=== PATIENT | male | born 1970 | race American Indian/Alaskan Native ===

== ENCOUNTER 2017-12-03 10:53 | Emergency (ER) | payer OTHER ==
[2017-12-03 11:19] VITALS: BP 119/81
== END 2017-12-03 14:29 | disposition left against medical advice (07) ==
LOC: ED 10:53
DX: Z53.21 Procedure and treatment not carried out due to patient leaving prior to being seen by health care provider (principal)

== ENCOUNTER 2019-09-21 06:04 | Day surgery (SDC) | payer OTHER ==
[2019-09-21] MEDS ORDERED: LIDOCAINE MPF (2%) 20 MG/1 ML VIAL 5 ML ONE (07:07)
[2019-09-21] MEDS ORDERED: PROPOFOL 200 MG/20 ML VIAL IV ONE ×2 (07:07→09:06)
[2019-09-21] MEDS ORDERED: fentaNYL 100 MCG/2 ML INJ ONE (07:07)
[2019-09-21] MEDS ORDERED: ceFAZolin/STERILE WATER 2 GM/20 ML SYRINGE IV NR (07:16)
--- NOTE | 2019-09-21 07:26 | Anesthesia Consultation ---
Anesthesia Consult and Med Hx Date of service: 09/21/19 - Airway Anesthetic Teeth Evaluation: Poor ROM Head & Neck: Adequate Mental/Hyoid Distance: Adequate Mallampati Class: Class II Intubation Access Assessment: Probably Good - Pulmonary Exam CTA: Yes - Cardiac Exam Cardiac Exam: RRR - Pre-Operative Health Status ASA Pre-Surgery Classification: ASA2 Proposed Anesthetic Plan: General - Pulmonary Hx Smoking: No Hx Asthma: No Hx Respiratory Symptoms: No SOB: No COPD: No Home Oxygen Therapy: No Hx Pneumonia: No Hx Sleep Apnea: No - Cardiovascular System Hx Hypertension: No Hx Coronary Artery Disease: No Hx Heart Attack/AMI: No Hx Angina: No Hx Percutaneous Transluminal Coronary Angioplasty (PTCA): No Hx Cardia Arrhythmia: No Hx Pacemaker: No Hx Internal Defibrillator: No Hx Valvular Heart Disease: No Hx Heart Murmur: No Hx Peripheral Vascular Disease: No - Central Nervous System Hx Neuromuscular Disorder: No Hx Seizures: No CVA: No Hx Back Pain: Yes (UPPER) Hx Psychiatric Problems: No - Gastrointestinal Hx Ulcer: No Hx Gastroesophageal Reflux Disease: No - Endocrine Hx Renal Disease: No Hx End Stage Renal Disease: No Hx Cirrhosis: No Hx Liver Disease: No Hx Insulin Dependent Diabetes: No Hx Non-Insulin Dependent Diabetes: No Hx Thyroid Disease: No Hx Hypothyroidism: No Hx Hyperthyroidism: No - Hematic Hx Anemia: No Hx Sickle Cell Disease: No - Other Systems Hx Alcohol Use: Yes (4 BEERS/WEEK) Hx Substance Use: No Hx Cancer: No Hx Obesity: No
--- NOTE | 2019-09-21 07:27 | Anesthesia Day of Surgery ---
Anesthesia Day of Surgery - Day of Surgery Patient Examined: Yes Patient H&P Reviewed: Yes Patient is NPO: Yes Beta Blockers: No Cardiac Clearance: No Pulmonary Clearance: No Bryant's Test: N/A
[2019-09-21] MEDS ORDERED: BUPIVACAINE-EPINEPHRINE/PF 0.5%-1:200,000 (30 ML) VIAL INFILTRATI ONE ×2 (07:31→08:33)
[2019-09-21] MEDS ORDERED: MIDAZOLAM 2 MG/2 ML INJ IV NR (08:00)
[2019-09-21] MEDS ORDERED: LACTATED RINGERS 1,000 ML IV SCH (08:00)
[2019-09-21] MEDS ORDERED: SUCCINYLCHOLINE CHLORIDE 200 MG/10 ML INJ MDV ONE (08:03)
[2019-09-21] MEDS ORDERED: ROCURONIUM 50 MG/5 ML INJ IV ONE (08:10)
[2019-09-21] MEDS ORDERED: ONDANSETRON 4 MG/2 ML INJ ONE (08:12)
[2019-09-21] MEDS ORDERED: dexAMETHasone 20 MG/5 ML VIAL ONE (08:13)
[2019-09-21] MEDS ORDERED: KETOROLAC 30 MG/1 ML INJ ONE (08:16)
[2019-09-21] MEDS ORDERED: HYDROmorphone 1 MG/1 ML INJ ONE (08:21)
[2019-09-21] MEDS ORDERED: SODIUM CHLORIDE 0.9% IRR 1,500 ML BOTTLE IR ONE (08:59)
--- NOTE | 2019-09-21 09:07 | Discharge Summary ---
Short Stay Discharge Plan Activity: other (observe x 4 hrs then march d/c if stable and able to void. ice pack L groin x 6 hrs. scrotal support x 3 days. no lifting over 5 lbs x 3 wks. keep incision dry x 5 days) Diet: clear liquids (advance to solid diet as luis) Wound: keep clean and dry Additional Instructions: surfak I po q am x 3. aleve I po q 6-8 hrs prn for breakthrough pain Follow up with: WILLIAM CANALES MD [Staff Physician] - 7 Days
--- NOTE | 2019-09-21 11:19 | Operative Report ---
PREOPERATIVE DIAGNOSIS: Left inguinal hernia. POSTOPERATIVE DIAGNOSES: Lipoma of cord and large direct inguinal hernia. PROCEDURE: Open left inguinal hernia repair with mesh. SURGEON: Angel Chavira MD ANESTHESIA: General. ESTIMATED BLOOD LOSS: Minimal. DRAINS: None. COMPLICATIONS: None. PROCEDURE IN DETAIL: The patient was taken to the operating room, prepped and draped in usual sterile fashion. Incision was made using his landmarks anterior superior iliac spine and the pubic tubercle. Incision was carried down to the external oblique fascia. External oblique fascia was transected down to the external inguinal ring. The cord was then isolated with a Barb drain at the level of the pubic tubercle. Inspection of the cord revealed a lot of fatty tissue as well as a lipoma, but no indirect sac. The palpation of the floor did reveal a complete weakness of the inguinal canal floor consistent with large direct hernia. The lipoma was inverted and returned to the peritoneal cavity. A preshaped keyhole Marlex mesh was used to reconstruct the inguinal canal floor. The mesh was tacked in his lower most portion to the area of the pubic tubercle and inferior iliopubic tract with tacker. Medially, the mesh was secured to the transversalis fascia with Surgilon suture. Laterally, it was secured to the iliopubic tract. The cord was then on laid over the mesh. All cord structures were inspected including the ilioinguinal nerve and noted to be intact. Area was irrigated copiously and dried. Checked for hemostasis and noted to be dry. External oblique fascia was then closed over the cord with running 4-0 Vicryl suture. Subcutaneous tissues irrigated and skin closed with igor. A 0.5% Marcaine was infiltrated over the fascia, subcutaneous and skin for postoperative pain relief. Ilioinguinal nerve block was also performed. The patient tolerated the procedure well and left the OR in stable condition. JOB# [id number] STEPHANIE/NTS
[2019-09-21] MEDS ORDERED: HYDROcodone/ACETAMINOPHEN 5-325 MG TAB PO PRN (12:06)
[2019-09-21 12:20] VITALS: BP 128/75
--- NOTE | 2019-09-21 12:22 | Post Anesthesia Evaluation ---
- Post Anesthesia Evaluation Patient Participated: Yes Airway Patent: Yes Stable Respiratory Function: Yes Nausea/Vomiting: No Temp > 96.8F: Yes Pain Manageable: Yes Adequeate Hydration: Yes Anesthesia Complications: No Block Receding Appropriately: Not Applicable Patient on Ventilator: No
== END 2019-09-21 12:20 | disposition home or self-care (01) ==
LOC: OR 06:04
PROVIDERS: ATTEND Surgery
DX: K40.90 Unilateral inguinal hernia, without obstruction or gangrene, not specified as recurrent (principal); D17.6 Benign lipomatous neoplasm of spermatic cord; Z79.899 Other long term (current) drug therapy; Z72.89 Other problems related to lifestyle; Z80.8 Family history of malignant neoplasm of other organs or systems; Z98.890 Other specified postprocedural states
CPT/HCPCS: 49505; C1781; J0330; J0690; J1100; J1170; J1885; J2250; J2405; J2704; J3010; J7120

== ENCOUNTER 2019-12-23 10:01 | Emergency (ER) | payer OTHER ==
--- NOTE | 2019-12-23 12:01 | Emergency Department Report ---
ED Extremity Problem HPI - General Chief complaint: Extremity Problem,Nontraumatic Stated complaint: FINGER SWELLING Time Seen by Provider: 12/23/19 11:13 Source: patient Mode of arrival: Ambulatory Limitations: No Limitations - History of Present Illness Initial comments: 49-year-old male complaining of right distal second finger pain and swelling X 2 days There is no known injury. Patient admits to trying to remove hangnail. He denies fever. Location: right Radiation: proximal Quality: other (throbbing) Consistency: constant Improves with: nothing Worsens with: palpation Associated Symptoms: denies other symptoms - Related Data Previous Rx's Medication Instructions Recorded Last Taken Type HYDROcodone/APAP 5-325 [[place] 1 - 2 each PO Q4HR PRN #30 tablet 09/21/19 Unknown Rx 5/325] Ibuprofen [Motrin] 600 mg PO Q8H PRN 5 Days #15 tablet 12/23/19 Unknown Rx Sulfamethoxazole/Trimethoprim 1 each PO BID 10 Days #20 tablet 12/23/19 Unknown Rx [Bactrim DS TAB] Allergies Allergy/AdvReac Type Severity Reaction Status Date / Time No Known Allergies Allergy Verified 09/17/19 18:07 ED Review of Systems ROS: Stated complaint: FINGER SWELLING Other details as noted in HPI Comment: All other systems reviewed and negative Constitutional: denies: chills, fever ENT: denies: ear pain Respiratory: denies: cough Cardiovascular: denies: chest pain Musculoskeletal: other (right 2nd distal finger pain and swelling) ED Past Medical Hx - Past Medical History Previous Medical History?: No Hx Hypertension: No Hx Heart Attack/AMI: No Hx Liver Disease: No Hx Renal Disease: No Hx Sickle Cell Disease: No Hx Seizures: No Hx Asthma: No Hx COPD: No Hx HIV: No (NEVER TESTED) - Surgical History Past Surgical History?: Yes Hx Pacemaker: No Hx Internal Defibrillator: No Additional Surgical History: right inquinal hernia repair - Social History Smoking Status: Current Every Day Smoker Substance Use Type: Alcohol - Medications Home Medications: Home Medications Medication Instructions Recorded Confirmed Last Taken Type HYDROcodone/APAP 5-325 [[place] 1 - 2 each PO Q4HR PRN #30 tablet 09/21/19 Unknown Rx 5/325] Ibuprofen [Motrin] 600 mg PO Q8H PRN 5 Days #15 tablet 12/23/19 Unknown Rx Sulfamethoxazole/Trimethoprim 1 each PO BID 10 Days #20 tablet 12/23/19 Unknown Rx [Bactrim DS TAB] ED Physical Exam - General Limitations: No Limitations General appearance: alert, in no apparent distress - Head Head exam: Present: atraumatic - Eye Eye exam: Present: normal appearance - ENT ENT exam: Present: normal exam - Neck Neck exam: Present: normal inspection - Respiratory Respiratory exam: Present: respiratory distress - Cardiovascular Cardiovascular Exam: Present: regular rate - Extremities Exam Extremities exam: Present: full ROM, normal capillary refill, other (right distal 2nd finger swelling and tenderness around the nail bed. Full rom sensation intact cap refill 1-2 sec) - Neurological Exam Neurological exam: Present: alert, oriented X3 - Skin Skin exam: Present: warm, dry ED Course Vital Signs 12/23/19 12/23/19 10:15 12:27 Temperature 98.9 F Pulse Rate 61 58 L Respiratory 16 16 Rate Blood Pressure 138/87 Blood Pressure 134/81 [Left] O2 Sat by Pulse 99 100 Oximetry - I & D Right Finger Type of Procedure: Simple Site: right 2nd finger nail bed Blade Size: 11 I & D Procedure: betadine prep Progress: 11 blade used to lift the nail bed of the right 2nd finger no drainage ED Medical Decision Making - Medical Decision Making Right second finger paronychia attempted I and D was unsuccessful no drainage. Patient instructed to continue warm soaks at home at least 3 times a day. Rx for antibiotic given instructed to follow-up with his primary care doctor in 3-5 days or return to the emergency room for any increasing swelling and increasing pain or redness Critical Care Time: No Critical care attestation.: If time is entered above; I have spent that time in minutes in the direct care of this critically ill patient, excluding procedure time. ED Disposition Clinical Impression: Paronychia of finger Qualifiers: Laterality: right Qualified Code(s): L03.011 - Cellulitis of right finger Disposition: - TO HOME OR SELFCARE Is pt being admited?: No Does the pt Need Aspirin: No Condition: Stable Instructions: Paronychia (ED) Additional Instructions: Continue with warm water soak at least 4 times a day to encourage drainage. Take antibiotics as prescribed. Follow up with your doctor or [facility] if no improvement or worsening symptoms such as increasing pain swelling or fever Prescriptions: Sulfamethoxazole/Trimethoprim [Bactrim DS TAB] 1 each PO BID 10 Days #20 tablet Ibuprofen [Motrin] 600 mg PO Q8H PRN 5 Days #15 tablet PRN Reason: Pain Referrals: PRIMARY CARE, [Primary Care Provider] - 3-5 Days Forms: Accompanied Note Time of Disposition: 12:18
[2019-12-23 12:28] VITALS: BP 134/81
== END 2019-12-23 12:27 | disposition home or self-care (01) ==
LOC: ED 10:01
DX: L02.511 Cutaneous abscess of right hand (principal); L03.011 Cellulitis of right finger; F17.200 Nicotine dependence, unspecified, uncomplicated; Z79.899 Other long term (current) drug therapy
CPT/HCPCS: 99282

== ENCOUNTER 2021-12-03 16:01 | Emergency (ER) | payer SELFPAY | END 2021-12-06 06:19 | disposition left against medical advice (07) | LOC: ED 16:01 | DX: J32.9 Chronic sinusitis, unspecified (principal); Z53.21 Procedure and treatment not carried out due to patient leaving prior to being seen by health care provider ==